=== PATIENT | male | born 1940 | race Caucasian/White ===

== ENCOUNTER 2019-04-21 06:22 | Day surgery (SDC) | payer MEDICARE, OTHER ==
[2019-04-14 16:01] LABS: CLARITY,URINE CLEAR (Clear); COLOR,URINE YELLOW (Yellow); GLUCOSE, URINE NEGATIVE (Neg); KETONES,URINE NEGATIVE (Neg); LEUKOCYTE ESTERASE ,URINE NEGATIVE (Neg); NITRITES, URINE NEGATIVE (Neg); OCCULT BLOOD,URINE NEGATIVE (Neg); PH,URINE 5.5 (4.8-8.0); PROTEIN,URINE 100 mg/dl (Neg)
[2019-04-14 16:07] LABS: UA COLLECTION TYPE CLN CATCH MIDSTREAM
[2019-04-14 16:09] LABS: MUCUS STRANDS MODERATE /LPF (Neg); SQUAMOUS EPITHELIAL CELL,UR FEW /LPF (FEW)
[2019-04-14 16:12] LABS: BACTERIA,URINE 1+ /HPF (Neg); RBC,URINE 0-2 /HPF (0-2); WBC,URINE 0-4 /HPF (0-4)
[2019-04-14 16:14] LABS: BASOPHILS % (AUTO) 0.3 % (0-1); EOSINOPHILS % (AUTO) 0.3 % (0-6); LYMPHOCYTES # (AUTO) 2.1 X10'3 (1.1-4.8); LYMPHOCYTES % (AUTO) 33.5 % (21-51); MEAN CORPUSCULAR HEMOGLOBIN 31.6 PG (27.0-31.0); MEAN CORPUSCULAR HGB CONC 33.5 g/dL (33.0-36.5); MEAN CORPUSCULAR VOLUME 94.4 FL (78-98); MEAN PLATELET VOLUME 10.5 FL (7.4-10.4); MONOCYTES # (AUTO) 1.3 X10'3 (0-0.9); MONOCYTES % (AUTO) 20.7 % (2-12); NEUTROPHILS # (AUTO) 2.8 X10'3 (1.8-7.7); NEUTROPHILS % (AUTO) 45.2 % (42-75); PRE OP HEMATOCRIT 42.6 % (42.0-52.0); PRE OP HEMOGLOBIN 14.3 g/dL (14.0-17.9); PRE OP PLATELET COUNT 117 X10'3 (140-440); RED BLOOD COUNT 4.51 X10'6 (4.70-6.10); RED CELL DISTRIBUTION WIDTH 14.5 % (11.5-14.5)
[2019-04-14 16:21] LABS: ALBUMIN 4.4 G/DL (3.4-5.0); ALKALINE PHOSPHATASE 97 IU/L (46-116); BLOOD UREA NITROGEN 26 MG/DL (7-18); BUN/CREATININE RATIO 15.6 (5.4-32.0); CALCIUM 9.9 MG/DL (8.5-10.1); CHLORIDE 107 MMOL/L (99-107); CREATININE 1.67 MG/DL (0.60-1.10); PRE OP ALT 17 U/L (30-65); PRE OP ANION GAP 14 (8-16); PRE OP AST 15 U/L (10-37); PRE OP BILIRUB, TOTAL 1.1 MG/DL (0.0-1.0); PRE OP GLUCOSE 97 MG/DL (70-104); PRE OP POTASSIUM 3.9 MMOL/L (3.4-5.1); PRE OP SODIUM 142 MMOL/L (135-145); TOTAL CARBON DIOXIDE 21.4 MMOL/L (24-32); TOTAL PROTEIN 8.6 G/DL (6.4-8.2); eGFR 40 ML/MIN
[2019-04-14 16:37] LABS: TOTAL CELLS COUNTED 100
[2019-04-14 16:38] LABS: PLATELET ESTIMATE DECREASED
[~2019-04-21] VITALS: Ht 177.8 cm; Wt 79.8 kg
[2019-04-21] VITALS (19 sets, daily range): BP systolic 117–159; BP diastolic 66–97
[~2019-04-21 06:22] MED LIST: FLO0.4C PO; IBUP-24 PO
[2019-04-21] MEDS ORDERED: ceFAZolin 1000mg inj ONE (06:32)
[2019-04-21] MEDS ORDERED: BUPIVAcaine/PF 2.5mg/ml (0.25%) 10ml vial ONE (06:32)
[2019-04-21] MEDS ORDERED: LIDOcaine 1% (10mg/ml) 2ml vial ONE (07:07)
[2019-04-21] MEDS ORDERED: famotidine 20mg tablet PO ONE (07:30)
[2019-04-21] MEDS ORDERED: cefazolin/dext.iso 2gm/100 ML IV ONE (07:30)
[2019-04-21] MEDS ORDERED: ringers solution, lacted 1,000 ML IV SCH ×2 (07:30→07:40)
[2019-04-21] MEDS ORDERED: labetalol 20mg/4ml (5mg/ml) syringe IV PRN (07:40)
[2019-04-21] MEDS ORDERED: morphine 4 MG/ML inj SYRINge IV PRN (07:40)
[2019-04-21] MEDS ORDERED: fentaNYL/PF 50MCG/1 ML 2ML syringe IV PRN ×2 (07:40)
[2019-04-21] MEDS ORDERED: ondansetron/PF 4mg/2ml inj IV PRN (07:40)
[2019-04-21] MEDS ORDERED: hydrALAZINE 20mg/ml inj. IV PRN (07:40)
[2019-04-21] MEDS ORDERED: fentaNYL/PF 50MCG/1 ML 2ML syringe ONE (07:59)
[2019-04-21] MEDS ORDERED: propofol inj 20 ML IV ONE (07:59)
[2019-04-21] MEDS ORDERED: LIDOcaine 2% (20mg/ml) 5ml vial ONE (07:59)
[2019-04-21] MEDS ORDERED: midazolam 2 mg/2 ml injection ONE (07:59)
[2019-04-21] MEDS ORDERED: ondansetron/PF 4mg/2ml inj ONE (08:00)
[2019-04-21] MEDS ORDERED: dexamethasone sod phosphate 4mg/ml inj. ONE (08:00)
[2019-04-21] MEDS ORDERED: rocuronium 10mg/ml inj IV ONE (08:00)
[2019-04-21] MEDS ORDERED: sevoflurane 250ml liquid IH ONE (08:37)
--- NOTE | 2019-04-21 09:47 | NUR ---
Received from OR via [facility], accompanied by Anesthesiologist DR GABRIEL and report given by Anesthesiologist. PT DROWSY, NO S/S OF DISTRESS/DISCOMFORT, ABDOMEN W/2 LAP SITES W/BANDAIDS CDI. Addendum: 04/21/19 at 1015 by Nirmala Lora RN Amended: Links added.
[2019-04-21] MEDS: morphine 4 MG/ML inj SYRINge IV PRN ×2 (10:37→11:19)
--- NOTE | 2019-04-21 11:15 | NUR ---
PT AWAKE AND HAS DECIDED NOT TO KEEP GALAVIZ CATHETER IN AND WANTS TO HAVE IT D/CD W/THE UNDERSTANDING IF HE IS UNABLE TO VOID HE WILL NEED IT REPLACED. BALLOON DEFLATED AND GALAVIZ CATHETER D/CD W/TIP INTACT. PT GIVEN COFFEE PER HIS REQUEST, PAIN MEDICATION GIVEN FOR ABDOMINAL PAIN. Addendum: 04/21/19 at 1147 by Nirmala Lora RN Amended: Links added.
--- NOTE | 2019-04-21 13:07 | NUR ---
PT UNABLE TO VOID, ONLY SMALL DRIBBMADISON, PT SENT TO PAS UNIT, REPORT TO RECEIVING DENIS VELASQUEZ. Addendum: 04/21/19 at 1315 by Nirmala Lora RN Amended: Links added.
--- NOTE | 2019-04-21 14:40 | NUR ---
(1310) RECEIVED PT- STATES ADEQUATE PAIN RELIEF. ABDOMINAL BANDAIDS C/D/I. ABDOMEN SOFT WITH MINIMAL TENDERNESS. AWAITING PT VOID FOR D/C HOME. (1415) VOIDS CLEAR YELLOW URINE 250MLS WITH 55ML BLADDER SCAN RESIDUAL PRESENT. VS BP129/73, P 72, RR 17, SAO2 97%. D/C HOME WITH UNDERSTANDING OF DISCHARGE INSTRUCTIONS. Addendum: 04/21/19 at 1559 by Codi Duong RN Amended: Links added.
== END 2019-04-21 14:40 | disposition home or self-care (01) ==
LOC: PAS 06:22
PROVIDERS: ATTEND Surgery
DX: K40.91 Unilateral inguinal hernia, without obstruction or gangrene, recurrent (principal); I11.0 Hypertensive heart disease with heart failure; I50.9 Heart failure, unspecified; G89.29 Other chronic pain; M19.90 Unspecified osteoarthritis, unspecified site; F17.210 Nicotine dependence, cigarettes, uncomplicated; Z95.1 Presence of aortocoronary bypass graft; Z79.899 Other long term (current) drug therapy; Z98.890 Other specified postprocedural states; Z88.5 Allergy status to narcotic agent; Z80.9 Family history of malignant neoplasm, unspecified
CPT/HCPCS: 36415; 49651; 80053; 81001; 82948; 85025; C1781; J0690; J1100; J2001; J2250; J2270; J2405; J2704; J3010; J3490; A4215; A4314; A4618; A6258; J7120